=== PATIENT | female | born 1990 | race Caucasian/White ===

== ENCOUNTER 2019-08-06 00:41 | Emergency (ER) | payer OTHER ==
[~2019-08-06] VITALS: Ht 152.4 cm; Wt 88.6 kg
[2019-08-06] MEDS ORDERED: LORazepam 2 MG/ML VIAL IVP ONE (01:30)
[2019-08-06] MEDS ORDERED: SODIUM CHLORIDE 0.9% 1,000 ML IV ONE (01:30)
[2019-08-06] MEDS ORDERED: ONDANSETRON HCL 4 MG/2 ML VIAL IVP ONE (01:30)
[2019-08-06 03:48] VITALS: BP 170/116
== END 2019-08-06 03:55 | disposition home or self-care (01) ==
LOC: EMS 00:41
DX: T18.9XXA Foreign body of alimentary tract, part unspecified, initial encounter (principal); J02.9 Acute pharyngitis, unspecified; R11.10 Vomiting, unspecified; X58.XXXA Exposure to other specified factors, initial encounter; Y93.9 Activity, unspecified; Y92.89 Other specified places as the place of occurrence of the external cause; Y99.8 Other external cause status
CPT/HCPCS: 70360; 71045; 81025; 96361; 96374; 96375; 99283; J2060; J2405; J7030

== ENCOUNTER 2019-12-27 13:53 | Emergency (ER) | payer OTHER ==
[~2019-12-27] VITALS: Ht 152.4 cm; Wt 86.4 kg
[2019-12-27] MEDS ORDERED: IBUPROFEN 800 MG TABLET PO ONE (14:45)
[2019-12-27 18:06] LABS: APPEARANCE,URINE CLEAR (CLEAR); BILIRUBIN,URINE NEGATIVE (NEGATIVE); GLUCOSE, URINE (UA) NEGATIVE (NEGATIVE); KETONES,URINE NEGATIVE (NEGATIVE); LEUKOCYTE ESTERASE ,URINE NEGATIVE (NEGATIVE); NITRATE,URINE NEGATIVE (NEGATIVE); OCCULT BLOOD,URINE NEGATIVE (NEGATIVE); PH,URINE 6.5 (5.0-8.0); PROTEIN,URINE NEGATIVE (NEGATIVE); UROBILINOGEN,URINE 0.2 mg/dL (<=1.0)
[2019-12-27 18:33] LABS: BASOPHILS % (AUTO) 0.8 % (0.0-2.0); EOSINOPHILS % (AUTO) 1.4 % (1.0-6.0); HEMATOCRIT 41.3 % (36-46); HEMOGLOBIN 13.4 g/dL (12.0-16.0); LYMPHOCYTES # (AUTO) 2.6 K/uL (1.0-4.8); LYMPHOCYTES % (AUTO) 21.8 % (22.0-44.0); MEAN CORPUSCULAR HEMOGLOBIN 25.7 pg (26.0-34.0); MEAN CORPUSCULAR HGB CONC 32.5 G/dL (31.0-37.0); MEAN CORPUSCULAR VOLUME 79 fL (80-100); MONOCYTES # (AUTO) 0.6 K/uL (0.1-1.0); MONOCYTES % (AUTO) 5.4 % (2.0-9.0); NEUTROPHILS # (AUTO) 8.5 K/uL (1.8-7.7); NEUTROPHILS % (AUTO) 70.6 % (40.0-70.0); PLATELET COUNT (AUTO) 366 K/uL (150-450); RED BLOOD CELL COUNT(AUTO) 5.22 MIL/uL (4.00-5.20); RED CELL DISTRIBUTION WIDTH 14.3 % (11.5-14.5)
[2019-12-27 18:50] LABS: ANION GAP 10 mmol/L (8-16); CALCIUM, TOTAL 9.1 mg/dL (8.8-10.5); CARBON DIOXIDE 27 mmol/L (22-29); CHLORIDE 101 mmol/L (98-107); GLOMERULAR FILTR. RATE CALC > 60 mL/min (>60); GLUCOSE,RANDOM 82 mg/dL (70-110); POTASSIUM 3.8 mmol/L (3.5-5.1); SODIUM SERUM 138 mmol/L (136-145); UREA NITROGEN, BLOOD 16 mg/dL (7-18)
[2019-12-27 18:56] LABS: ALANINE AMINOTRANSFERASE 33 U/L (12-78); ALKALINE PHOSPHATASE 101 U/L (46-116); ASPARTATE AMINOTRANSFERASE 16 U/L (15-37); BILIRUBIN,TOTAL 0.5 mg/dL (0.1-1.0); LIPASE 182 U/L (73-393); TOTAL PROTEIN, SERUM 7.8 g/dL (6.4-8.2)
[2019-12-27] MEDS ORDERED: FLUCONAZOLE 150 MG TABLET PO ONE (19:00)
[2019-12-27 19:15] VITALS: BP 120/78
== END 2019-12-27 19:29 | disposition home or self-care (01) ==
LOC: EMS 13:54
DX: J02.8 Acute pharyngitis due to other specified organisms (principal); B97.89 Other viral agents as the cause of diseases classified elsewhere; J06.9 Acute upper respiratory infection, unspecified; R10.32 Left lower quadrant pain; R10.13 Epigastric pain
CPT/HCPCS: 87430

== ENCOUNTER 2020-01-15 16:08 | Emergency (ER) | payer OTHER ==
[~2020-01-15] VITALS: Ht 152.4 cm; Wt 86.4 kg
[2020-01-15] MEDS ORDERED: SODIUM CHLORIDE 0.9% 100 ML ONE (17:55)
[2020-01-15] MEDS ORDERED: IOVERSOL 320 MG/ML 100 ML VIAL ONE (17:55)
[2020-01-15 18:51] LABS: BASOPHILS % (AUTO) 1.1 % (0.0-2.0); EOSINOPHILS % (AUTO) 1.5 % (1.0-6.0); HEMATOCRIT 41.2 % (36-46); HEMOGLOBIN 13.4 g/dL (12.0-16.0); LYMPHOCYTES # (AUTO) 3.1 K/uL (1.0-4.8); MEAN CORPUSCULAR HEMOGLOBIN 25.8 pg (26.0-34.0); MEAN CORPUSCULAR HGB CONC 32.5 G/dL (31.0-37.0); MEAN CORPUSCULAR VOLUME 79 fL (80-100); MONOCYTES # (AUTO) 0.8 K/uL (0.1-1.0); MONOCYTES % (AUTO) 6.7 % (2.0-9.0); NEUTROPHILS # (AUTO) 7.7 K/uL (1.8-7.7); NEUTROPHILS % (AUTO) 64.7 % (40.0-70.0); PLATELET COUNT (AUTO) 390 K/uL (150-450); RED CELL DISTRIBUTION WIDTH 14.7 % (11.5-14.5)
[2020-01-15 19:04] LABS: ANION GAP 11 mmol/L (8-16); CALCIUM, TOTAL 9.2 mg/dL (8.8-10.5); CARBON DIOXIDE 27 mmol/L (22-29); CHLORIDE 106 mmol/L (98-107); CREATININE 0.98 mg/dL (0.60-1.30); GLOMERULAR FILTR. RATE CALC > 60 mL/min (>60); GLUCOSE,RANDOM 88 mg/dL (70-110); POTASSIUM 3.7 mmol/L (3.5-5.1); SODIUM SERUM 144 mmol/L (136-145); UREA NITROGEN, BLOOD 19 mg/dL (7-18)
[2020-01-15 19:15] LABS: ALANINE AMINOTRANSFERASE 20 U/L (12-78); ALBUMIN 4.2 g/dL (3.4-5.0); ALKALINE PHOSPHATASE 91 U/L (46-116); ASPARTATE AMINOTRANSFERASE 13 U/L (15-37); BILIRUBIN,TOTAL 0.2 mg/dL (0.1-1.0); HCG,QUANTITATIVE < 1 mIU/mL (0-6)
[2020-01-15] MEDS ORDERED: KETOROLAC TROMETHAMINE 30 MG/ML VIAL IVP ONE (19:45)
[2020-01-15] MEDS ORDERED: CYCLOBENZAPRINE HCL 10 MG TABLET PO ONE (20:45)
[2020-01-15 21:04] VITALS: BP 125/65
== END 2020-01-15 21:21 | disposition home or self-care (01) ==
LOC: EMS 16:10
DX: M54.12 Radiculopathy, cervical region (principal); R07.9 Chest pain, unspecified
CPT/HCPCS: 36415; 71275; 80053; 84484; 84702; 85025; 93005; 96374; 99285; J1885; J7050; Q9967

== ENCOUNTER 2020-11-21 03:18 | Emergency (ER) | payer OTHER ==
[~2020-11-21] VITALS: Ht 152.4 cm; Wt 85.9 kg
[2020-11-21 03:30] VITALS: BP 146/75
[2020-11-21] MEDS ORDERED: ACETAMINOPHEN 325 MG TABLET PO ONE (04:00)
[2020-11-21 04:13] LABS: COVID AG,FIA SOURCE NASOPHARYNGEAL
[2020-11-21 04:38] LABS: INFLUENZA TYPE A NEGATIVE FOR TYPE A (NEGATIVE); INFLUENZA TYPE B NEGATIVE FOR TYPE B (NEGATIVE)
== END 2020-11-21 05:53 | disposition home or self-care (01) ==
LOC: EMS 03:19
DX: J02.9 Acute pharyngitis, unspecified (principal); R09.81 Nasal congestion; M79.10 Myalgia, unspecified site; Z20.822 Contact with and (suspected) exposure to COVID-19
CPT/HCPCS: 87426; 87804; 99283; U0003

== ENCOUNTER 2024-04-03 18:34 | Emergency (ER) | payer OTHER ==
[~2024-04-03] VITALS: Ht 152.4 cm; Wt 75.0 kg
[2024-04-03 22:30] VITALS: BP 134/69; PULSE 74; RESP 20; TEMP 98.3
[2024-04-03] MEDS: IBUPROFEN 600 MG TABLET PO ONE (22:41)
[2024-04-03] MEDS: ACETAMINOPHEN/CODEINE 300-30 MG TABLET PO ONE (22:41)
[2024-04-03] MEDS ORDERED: TRAM50TA5 PO (23:23)
== END 2024-04-04 | disposition home or self-care (01) ==
LOC: EMS 18:42
DX: S93.401A Sprain of unspecified ligament of right ankle, initial encounter (principal); S16.1XXA Strain of muscle, fascia and tendon at neck level, initial encounter; R07.81 Pleurodynia; X50.1XXA Overexertion from prolonged static or awkward postures, initial encounter; Y93.89 Activity, other specified; Y92.89 Other specified places as the place of occurrence of the external cause; Y99.8 Other external cause status
CPT/HCPCS: 71045; 72040; 99284

== ENCOUNTER 2025-05-25 20:07 | Emergency (ER) | payer OTHER ==
[~2025-05-25] VITALS: Ht 152.4 cm; Wt 80.9 kg
[~2025-05-25 20:07] MED LIST: TRAM50TA5 PO
[2025-05-25 20:29] VITALS: TEMP 97.8
[2025-05-25 22:31] VITALS: BP 115/75; PULSE 81; RESP 16; O2SAT 98
== END 2025-05-25 22:36 | disposition home or self-care (01) ==
LOC: EMS 20:07
DX: S00.411A Abrasion of right ear, initial encounter (principal); H61.21 Impacted cerumen, right ear; X58.XXXA Exposure to other specified factors, initial encounter; Y93.89 Activity, other specified; Y92.89 Other specified places as the place of occurrence of the external cause; Y99.8 Other external cause status
CPT/HCPCS: 69209; 99282; Z7502